=== PATIENT | male | born 1960 | race African-American/Black ===

== ENCOUNTER 2017-03-19 02:15 | Inpatient (IN) | payer OTHER ==
[~2017-03-19] VITALS: Ht 167.6 cm; Wt 74.4 kg
[2017-03-19] MEDS ORDERED: MORPHINE SULFATE 4 MG/ML CPJ (NOT FOR IM USE) IV STA (03:01)
[2017-03-19] MEDS ORDERED: ONDANSETRON HCL 4MG/2ML VIAL IV STA (03:01)
[2017-03-19] MEDS ORDERED: NITROGLYCERIN OINT 1GM/INCH UDPKT TD ONE (03:15)
[2017-03-19] MEDS ORDERED: ASPIRIN 81MG TABLET PO ONE (03:15)
[2017-03-19 03:33] LABS: HEMATOCRIT. 45.6 % (42.0-52.0); HEMOGLOBIN. 15.4 g/dL (14.0-18.0); MEAN CORPUSCULAR HEMOGLOBIN 31.9 pg (28.0-32.0); MEAN CORPUSCULAR VOLUME 94.4 fL (80.0-94.0); MEAN PLATELET VOLUME 8.4 fl (7.4-10.4); PLATELET 321 x1000/uL (130-400); RED BLOOD CELL COUNT 4.83 mill/uL (4.7-6.1); RED CELL DISTRIBUTION WIDTH 15.5 % (11.6-14.6)
[2017-03-19 03:42] LABS: D-DIMER 0.99 mg/L FEU (<0.50); INR 1.1; PARTIAL THROMBOPLASTIN TIME 25.5 sec (24.0-34.0); PROTHROMBIN TIME 11.4 sec
[2017-03-19 03:48] LABS: CARBON DIOXIDE 24 mEq/L (21-32); CHLORIDE 107 mEq/L (98-107); TROPONIN I 0.06 ng/mL (0.00-0.04)
[2017-03-19] MEDS ORDERED: MORPHINE SULFATE 4 MG/ML CPJ (NOT FOR IM USE) IV ONE (06:00)
[2017-03-19 07:44] LABS: PLATELET ESTIMATE NORMAL
[2017-03-19 09:43] VITALS: BP 107/72
[2017-03-19] MEDS ORDERED: MAGNESIUM/ALUMINUM HYDROXIDE/SIMETHICONE 30ML UDC PO PRN (10:45)
[2017-03-19] MEDS ORDERED: LORAZEPAM 2MG/ML CPJ IV PRN (10:45)
[2017-03-19] MEDS ORDERED: CLONIDINE 0.1MG TABLET PO PRN (10:45)
[2017-03-19] MEDS ORDERED: GUAIFENESIN 200MG/10ML SUGAR FREE UDC PO PRN (10:45)
[2017-03-19] MEDS ORDERED: ONDANSETRON HCL 4MG/2ML VIAL IV PRN (10:45)
[2017-03-19] MEDS ORDERED: DOCUSATE SODIUM 100MG CAPSULE PO PRN (10:45)
[2017-03-19] MEDS ORDERED: ZOLPIDEM TARTRATE 5MG TABLET PO PRN (10:45)
[2017-03-19] MEDS ORDERED: IPRATROPIUM/ALBUTEROL 0.5-3(2.5)MG/3ML NEB INH PRN (10:45)
[2017-03-19] MEDS ORDERED: NITROGLYCERIN 0.4MG TABLET SL SL PRN (10:45)
[2017-03-19] MEDS ORDERED: ACETAMINOPHEN 325MG TABLET PO PRN (10:45)
[2017-03-19] MEDS ORDERED: NA PHOS,M-B/NA PHOS,DI-BA ENEMA 118ML PR PRN (10:45)
[2017-03-19] MEDS ORDERED: KETOROLAC 30MG/ML VIAL IV PRN (10:45)
[2017-03-19] MEDS ORDERED: DEXTROSE 50% WATER 50ML SYRINGE IV PRN (10:45)
[2017-03-19 11:04] VITALS: BP 109/78
[2017-03-19] MEDS ORDERED: ATORVASTATIN (11:25)
[2017-03-19] MEDS ORDERED: CHOL100026 GT (11:25)
[2017-03-19] MEDS ORDERED: LISI10TA5 PO (11:25)
[2017-03-19] MEDS ORDERED: AMLODIPINE (11:25)
[2017-03-19] MEDS ORDERED: CLOP75TA33 PO (11:25)
[2017-03-19] MEDS ORDERED: [UNRECOGNIZED DRUG - OTHER] (11:25)
[2017-03-19] MEDS ORDERED: FISH OIL (11:25)
[2017-03-19] MEDS ORDERED: OMEP20CA10 PO (11:25)
[2017-03-19] MEDS ORDERED: CARV12.545 PO (11:25)
[2017-03-19] MEDS ORDERED: NITR0.4T3 SL (11:25)
[2017-03-19] MEDS ORDERED: ASPI-1159 PO (11:25)
[2017-03-19 12:00] VITALS: BP 118/83
[2017-03-19] MEDS: INSULIN LISPRO 100 UNITS/ML SUBCUT SCH ×3 (12:15→21:00)
[2017-03-19] MEDS: BLOOD SUGAR DIAGNOSTIC STRIP TEST SCH ×3 (12:34→21:00)
[2017-03-19] MEDS: ENOXAPARIN 40MG/0.4ML SYR SUBCUT SCH (13:04)
[2017-03-19 16:00] VITALS: BP 110/78
[2017-03-19 18:45] LABS: TROPONIN I 0.06 ng/mL (0.00-0.04)
[2017-03-19 18:46] LABS: CREATINE KINASE MB FRACTION 2.3 ng/mL (0.5-3.6)
[2017-03-19 20:00] VITALS: BP 117/75
[2017-03-19 21:38] LABS: *AMPHETAMINES SCREEN URINE NEGATIVE (NEGATIVE); *BARBITURATES SCREEN URINE NEGATIVE (NEGATIVE); *BENZODIAZEPINES SCREEN URINE NEGATIVE (NEGATIVE); *COCAINE SCREEN URINE NEGATIVE (NEGATIVE); CANNABINOID URINE SCREEN NEGATIVE (NEGATIVE); METHADONE URINE SCREEN NEGATIVE (NEGATIVE); OPIATES URINE SCREEN PRESUMTIVE POSITIVE (NEGATIVE); PHENCYCLIDINE URINE SCREEN NEGATIVE (NEGATIVE)
[2017-03-20] VITALS: BP 118/62
[2017-03-20 02:43] LABS: CREATINE KINASE MB FRACTION 3.4 ng/mL (0.5-3.6); TROPONIN I 0.05 ng/mL (0.00-0.04)
[2017-03-20 04:10] VITALS: BP 122/75
[2017-03-20] MEDS: BLOOD SUGAR DIAGNOSTIC STRIP TEST SCH (06:45)
[2017-03-20 08:00] VITALS: BP 116/75
[2017-03-20] MEDS: ENOXAPARIN 40MG/0.4ML SYR SUBCUT SCH (08:51)
[2017-03-20] MEDS ORDERED: ASPIRIN 325MG EC TABLET PO SCH (09:00)
[2017-03-20] MEDS ORDERED: PANTOPRAZOLE SODIUM 40 MG/VIAL IV SCH (09:00)
[2017-03-20 11:05] VITALS: BP 112/71
== END 2017-03-20 11:40 | disposition home or self-care (01) | DRG 392 ==
LOC: ER 02:15 → 5WST 05:49 → EDBEDREQTM 05:54 → EDBEDREQ 05:54 → CANRESERV 07:02 → ENRESERV 07:02
PROVIDERS: ADMIT Internal Medicine; ATTEND Internal Medicine
DX: K21.9 Gastro-esophageal reflux disease without esophagitis (principal); I24.9 Acute ischemic heart disease, unspecified; E44.0 Moderate protein-calorie malnutrition; E11.9 Type 2 diabetes mellitus without complications; Z68.26 Body mass index [BMI] 26.0-26.9, adult; E78.00 Pure hypercholesterolemia, unspecified; I10 Essential (primary) hypertension; I25.10 Atherosclerotic heart disease of native coronary artery without angina pectoris; I25.2 Old myocardial infarction; Z76.5 Malingerer [conscious simulation]; Z79.82 Long term (current) use of aspirin; Z95.5 Presence of coronary angioplasty implant and graft; Z79.899 Other long term (current) drug therapy; Z88.6 Allergy status to analgesic agent; Z90.49 Acquired absence of other specified parts of digestive tract
CPT/HCPCS: 36415; 71010; 80053; 80061; 80305; 82550; 82553; 82962; 83036; 83880; 84484; 85025; 85379; 85610; 85730; 93005; 93970; 96374; 96375; 96376; 99285; C9113; J1650; J2060; J2270; J2405